=== PATIENT | male | born 1955 | race Caucasian/White ===

== ENCOUNTER 2016-09-04 10:10 | Day surgery (SDC) | payer OTHER, BC ==
[2016-09-04] MEDS ORDERED: DEXTROSE 5% 1,000 ML IV ONE (10:55)
[2016-09-04] MEDS ORDERED: LACTATED RINGERS 1,000 ML IV ONE ×2 (12:02→13:14)
[2016-09-04] MEDS ORDERED: fentaNYL 250 MCG/5 ML VIAL IVP ONE (12:02)
[2016-09-04] MEDS ORDERED: MIDAZOLAM 2 MG/2 ML VIAL IVP ONE (12:02)
== END 2016-09-04 10:11 | disposition home or self-care (01) ==
PROC: 0DBL8ZX Excision of Transverse Colon, Via Natural or Artificial Opening Endoscopic, Diagnostic (ICD-10-PCS; 2016-09-04)
PROC: 0DBN8ZX Excision of Sigmoid Colon, Via Natural or Artificial Opening Endoscopic, Diagnostic (ICD-10-PCS; principal; 2016-09-04 11:10)
DX: Z12.11 Encounter for screening for malignant neoplasm of colon (principal); D12.5 Benign neoplasm of sigmoid colon; D12.3 Benign neoplasm of transverse colon; G47.30 Sleep apnea, unspecified; I10 Essential (primary) hypertension
CPT/HCPCS: 45380; J3010; J7120

== ENCOUNTER 2017-05-15 07:23 | Outpatient (CLI) | payer BC, OTHER ==
[2017-05-15 13:43] LABS: BASOPHILS % (AUTO) 0.4 %; EOSINOPHILS # (AUTO) 0.1 10^3/uL (0.0-0.7); EOSINOPHILS % (AUTO) 2.1 %; HCT - HEMATOCRIT 41.2 % (42.0-52.0); HGB - HEMOGLOBIN 13.8 g/dL (14.0-18.0); LYMPHOCYTES # (AUTO) 1.7 10^3/uL (1.5-3.5); LYMPHOCYTES % (AUTO) 31.2 %; MEAN CORPUSCULAR HEMOGLOBIN 32.3 pg (27.0-31.0); MEAN CORPUSCULAR HGB CONC 33.4 g/dL (32.0-36.0); MEAN CORPUSCULAR VOLUME 96.8 fL (80.0-94.0); MONOCYTES # (AUTO) 0.5 10^3/uL (0.0-1.0); MONOCYTES % (AUTO) 8.8 %; NEUTROPHILS # (AUTO) 3.2 10^3/uL (1.5-6.6); NEUTROPHILS % (AUTO) 57.5 %; RED BLOOD COUNT 4.26 10^6/uL (4.70-6.10); RED CELL DISTRIBUTION WIDTH 13.1 % (12.0-15.0); UNCORRECTED WHITE BLOOD COUNT 5.5 x10^3/uL; WHITE BLOOD COUNT 5.5 x10^3/uL (4.8-10.8)
[2017-05-15 14:02] LABS: ALBUMIN/GLOBULIN RATIO 1.6 (1.0-2.2); BILIRUBIN,TOTAL 0.7 mg/dL (0.2-1.0); BUN - BLOOD UREA NITROGEN 20 mg/dL (6-20); CALCIUM 9.5 mg/dL (8.5-10.3); CARBON DIOXIDE - CO2 26 mmol/L (21-32); CHLORIDE 102 mmol/L (101-111); CHOLESTEROL 129 mg/dL; CREATININE 0.9 mg/dL (0.6-1.2); GFR - MDRD 85 (>89); GLUCOSE 94 mg/dL (70-100); HDL CHOLESTEROL 43 mg/dL; POTASSIUM 4.5 mmol/L (3.5-5.0); SODIUM 137 mmol/L (135-145); TOTAL PROTEIN 7.3 g/dL (6.7-8.2); TRIGLYCERIDES 39 mg/dL
[2017-05-15 14:12] LABS: HEMOGLOBIN A1C 0.64 g/dL
[2017-05-15 14:33] LABS: LDL CHOLESTEROL,DIRECT 80 mg/dL
== END 2017-05-15 07:24 | disposition home or self-care (01) ==
LOC: LAB.WCP 07:23
PROVIDERS: ATTEND Family Medicine
DX: I10 Essential (primary) hypertension (principal); E78.5 Hyperlipidemia, unspecified; R73.01 Impaired fasting glucose; Z12.5 Encounter for screening for malignant neoplasm of prostate
CPT/HCPCS: 36415; 80053; 80061; 83036; 84153; 85025

== ENCOUNTER 2020-12-27 11:44 | Outpatient (CLI) | payer MEDICARE, OTHER ==
[2020-12-27 18:00] LABS: BASOPHILS % (AUTO) 0.4 %; EOSINOPHILS # (AUTO) 0.1 10^3/uL (0.0-0.7); EOSINOPHILS % (AUTO) 1.9 %; HCT - HEMATOCRIT 42.7 % (42.0-52.0); HGB - HEMOGLOBIN 14.2 g/dL (14.0-18.0); LYMPHOCYTES # (AUTO) 2.1 10^3/uL (1.5-3.5); LYMPHOCYTES % (AUTO) 31.5 %; MEAN CORPUSCULAR HEMOGLOBIN 32.9 pg (27.0-31.0); MEAN CORPUSCULAR HGB CONC 33.3 g/dL (32.0-36.0); MEAN CORPUSCULAR VOLUME 98.8 fL (80.0-94.0); MEAN PLATELET VOLUME 10.2 fL (7.4-11.4); MONOCYTES # (AUTO) 0.7 10^3/uL (0.0-1.0); MONOCYTES % (AUTO) 9.9 %; NEUTROPHILS # (AUTO) 3.8 10^3/uL (1.5-6.6); PLT - PLATELET COUNT 286 10^3/uL (130-450); RED BLOOD COUNT 4.32 10^6/uL (4.70-6.10); RED CELL DISTRIBUTION WIDTH 13.2 % (12.0-15.0); WHITE BLOOD COUNT 6.8 x10^3/uL (4.8-10.8)
[2020-12-27 18:25] LABS: ALBUMIN 4.6 g/dL (3.2-5.5); ALBUMIN/GLOBULIN RATIO 1.4 (1.0-2.2); ALKALINE PHOSPHATASE 61 IU/L (42-121); ALT ALANINE AMINOTRANSFERASE 36 IU/L (10-60); AST ASPARTATE AMINOTRANSFERASE 29 IU/L (10-42); BILIRUBIN,TOTAL 0.8 mg/dL (0.2-1.0); BUN - BLOOD UREA NITROGEN 28 mg/dL (6-20); CALCIUM 9.3 mg/dL (8.5-10.3); CARBON DIOXIDE - CO2 23 mmol/L (21-32); CHLORIDE 101 mmol/L (101-111); CHOL/HDL RATIO 3.9 (<5.0); CHOLESTEROL 179 mg/dL; CREATININE 0.8 mg/dL (0.6-1.2); GFR - MDRD 97 (>89); GLUCOSE 98 mg/dL (70-100); HDL CHOLESTEROL 46 mg/dL; LDL CHOLESTEROL,CALCULATED 123 mg/dL; LDL/HDL RATIO 2.7 (<3.6); POTASSIUM 4.5 mmol/L (3.5-5.0); SODIUM 134 mmol/L (135-145); TOTAL PROTEIN 7.8 g/dL (6.7-8.2); TRIGLYCERIDES 48 mg/dL; VLDL CHOLESTEROL 10 mg/dL
[2020-12-27 18:33] LABS: THYROID STIMULATING HORMONE 1.89 uIU/mL (0.34-5.60)
[2020-12-27 20:34] LABS: ESTIMATED AVERAGE GLUCOSE 126 mg/dL (70-100)
== END 2020-12-27 23:59 | disposition home or self-care (01) ==
LOC: LAB.WCP 11:44
PROVIDERS: ATTEND Family Medicine
DX: R73.01 Impaired fasting glucose (principal); E78.5 Hyperlipidemia, unspecified; Z12.5 Encounter for screening for malignant neoplasm of prostate; I10 Essential (primary) hypertension; G40.909 Epilepsy, unspecified, not intractable, without status epilepticus
CPT/HCPCS: 36415; 80053; 80061; 83036; 84443; 85025; G0103; 83721; 84153

== ENCOUNTER 2021-02-05 09:14 | Outpatient (CLI) | payer MEDICARE, OTHER | END 2021-02-05 09:15 | disposition home or self-care (01) | LOC: DI 09:14 | PROVIDERS: ATTEND Family Medicine | DX: I35.0 Nonrheumatic aortic (valve) stenosis (principal) | CPT/HCPCS: 93306 ==

== ENCOUNTER 2021-08-06 08:00 | Outpatient (CLI) | payer MEDICARE, OTHER ==
[2021-08-06 18:12] LABS: CALCIUM 9.8 mg/dL (8.5-10.3); CREATININE 0.9 mg/dL (0.6-1.2); POTASSIUM 4.2 mmol/L (3.5-5.0)
[2021-08-07 09:21] LABS: HEPATITIS C ANTIBODY NON-REACTIVE (NON-REACTIVE)
== END 2021-08-06 23:59 | disposition home or self-care (01) ==
LOC: LAB.WCP 08:00
PROVIDERS: ATTEND Family Medicine
DX: Z01.84 Encounter for antibody response examination (principal); I10 Essential (primary) hypertension; I77.810 Thoracic aortic ectasia
CPT/HCPCS: 36415; 80048; 86803

== ENCOUNTER 2021-09-30 09:13 | Outpatient (CLI) | payer MEDICARE, OTHER | END 2021-09-30 09:14 | disposition home or self-care (01) | LOC: RT 09:13 | PROVIDERS: ATTEND Family Medicine | DX: Z77.098 Contact with and (suspected) exposure to other hazardous, chiefly nonmedicinal, chemicals (principal) | CPT/HCPCS: 94729 ==

== ENCOUNTER 2021-11-19 09:10 | Outpatient (CLI) | payer MEDICARE, OTHER ==
[2021-11-19 09:31] LABS: CREATININE 0.9 mg/dL (0.6-1.2)
[2021-11-19] MEDS ORDERED: IOVERSOL 320 100 ML VIAL IVP ONE ×2 (16:07→16:27)
--- NOTE | 2021-11-19 17:33 | CT Report ---
PROCEDURE: ANGIO CHEST W/WO INDICATIONS: AORTIC ROOT DILATION CONTRAST: 80 cc Isovue 320 IV contrast. TECHNIQUE: After the administration of intravenous contrast, 2 mm axial images were acquired from the pulmonary apices to the posterior costophrenic angles during the arterial phase. In addition, 1 mm lung kernel and 5 mm soft tissue kernel reconstructions were performed. 3-dimensional coronal oblique maximum int ensity projection (MIP) reformats, 8 mm axial MIP, and 5 mm coronal and sagittal MPR reformats were t hen performed through the thorax. For radiation dose reduction, the following was used: automated exp osure control, adjustment of mA and/or kV according to patient size. COMPARISON: Correlation is made with report only from prior noncontrast chest CT dated 02/26/2012. (N o images from that study aren't available at the time of this dictation.) FINDINGS: Image quality: Excellent. Pulmonary arteries: Pulmonary arteries are normal in size, and demonstrate no intraluminal filling d efects to suggest central pulmonary embolism. Lungs and pleura: Lungs are clear. No pleural effusions or pneumothorax. Central and peripheral ai rways are patent. Mediastinum: The aortic root is prominent, measuring 3.8 cm transversely, as on coronal image 51. Th e ascending thoracic aorta is minimally aneurysmal, measuring 4.1 cm. Heart size is normal, without pericardial effusion. No mediastinal or hilar adenopathy. Esophagus is normal in caliber, without hiatal hernia. Bones and chest wall: No suspicious bony lesions. Ribs and thoracic spine appear intact throughout. Degenerative changes are seen throughout, which are worst involving the thoracolumbar junction. No axillary or supraclavicular adenopathy. The thyroid is normal in size and there are no incidental fi ndings. Abdomen: An accessory splenule is incidentally noted along the hilum of the primary spleen. Visua lized upper abdominal solid organs appear normal in the early arterial phase of enhancement. IMPRESSION: Aortic root dilatation measuring 3.8 cm. Minimal aneurysm of the ascending thoracic aorta measuring 4.1 cm. Incidental note is made of: Focal degenerative change of the thoracolumbar junction Accessory splenule Reviewed by: Oumar Herr MD on 11/19/2021 4:32 PM AKDT Approved by: Oumar Herr MD on 11/19/2021 4:32 PM AKDT Station ID: [id number]
== END 2021-11-19 09:11 | disposition home or self-care (01) ==
LOC: LAB 09:10
PROVIDERS: ATTEND Family Medicine
DX: I77.810 Thoracic aortic ectasia (principal)
CPT/HCPCS: 36415; 71275; 82565; Q9967

== ENCOUNTER 2021-12-16 06:18 | Day surgery (SDC) | payer MEDICARE, OTHER ==
[2021-12-16] MEDS ORDERED: LACTATED RINGERS 1,000 ML IV ONE ×2 (06:38→08:30)
[2021-12-16] MEDS ORDERED: PROPOFOL 500 MG/50 ML 500 MG/50 ML VIAL ONE (07:08)
--- NOTE | 2021-12-16 07:13 | ANESTHESIA ---
Pre-Anesthesia VS, & Labs - Diagnosis hx of colon polyps - Procedure Colonoscopy Vital Signs: Temp Pulse Resp BP Pulse Ox 36.3 C L 70 20 160/101 H 96 12/16/21 06:33 12/16/21 06:33 12/16/21 06:33 12/16/21 06:33 12/16/21 06:33 Height: 5 ft 8 in Weight (kg): 99 kg Body Mass Index: 33.2 BMI Classification: Obese - NPO >8 hours - Lab Results Lab results reviewed: Yes Home Medications and Allergies Home Medications: Ambulatory Orders Glucos Sul 2Kcl/MSM/Chond/C/Mn [Glucosamine Chondroitin Cap] 1 each PO DAILY 12/11/21 hydroCHLOROthiazide [Hydrodiuril] 25 mg PO DAILY 12/11/21 Losartan [Cozaar] 100 mg PO DAILY 08/24/13 Simvastatin [Zocor] 40 mg PO QPM 08/24/13 levETIRAcetam [Keppra] 500 mg PO BID 08/24/13 Glucos Sul 2Kcl/MSM/Chond/C/Mn [Glucosamine Chondroitin Cap] 1 each PO DAILY 12/11/21 hydroCHLOROthiazide [Hydrodiuril] 25 mg PO DAILY 12/11/21 Allergies/Adverse Reactions: Allergies Allergy/AdvReac Type Severity Reaction Status Date / Time codeine Allergy Unknown Hallucinati Verified 12/11/21 13:43 ons Anes History & Medical History - Anesthetic History Anesthesia Complications: reports: No previous complications Family history of Anesthesia Complications: Denies Family history of Malignant Hyperthermia: Denies - Medical History Cardiovascular: reports: Hypertension, High cholesterol, Murmur Pulmonary: reports: None Gastrointestinal: reports: Colon polyps Urinary: reports: None Musculoskeletal: reports: Chronic back pain Endocrine/Autoimmune: reports: None Skin: reports: None - Surgical History General: reports: Appendectomy, Colonoscopy Eyes Ears Nose Throat (EENT): reports: Other Exam General: Alert, Oriented x3, Cooperative, No acute distress Dental: WNL Mouth Openin Fingerbreadth Neck Mobility: Normal Mallampati classification: II Respiratory: Lungs clear, Normal breath sounds, No respiratory distress, No accessory muscle use Plan Anesthesia Type: General, Total IV Consent for Procedure(s) Verified and Reviewed: Yes Code Status: Attempt Resuscitation ASA classification: 2-Mild systemic disease Is this case an emergency?: No
[2021-12-16 08:45] VITALS: BP 148/91
--- NOTE | 2021-12-16 09:41 | ANESTHESIA POST OP EVALUATION ---
Anesthesia Post Eval - Post Anesthesia Eval Vitals: Last Vital Signs Temp 36.4 C L 12/16/21 08:44 Pulse 64 12/16/21 08:44 Resp 16 12/16/21 08:44 BP 148/91 H 12/16/21 08:44 Pulse Ox 100 12/16/21 08:44 CV Function Including HR & BP: Stable Pain Control: Satisfactory Nausea & Vomiting: Negative Mental Status: Baseline Respiratory Status: Airway Patent Hydration Status: Satisfactory Anesthesia Complications: None
== END 2021-12-16 06:19 | disposition home or self-care (01) ==
LOC: SDS 06:18
PROVIDERS: ATTEND Surgery
DX: Z12.11 Encounter for screening for malignant neoplasm of colon (principal); K57.30 Diverticulosis of large intestine without perforation or abscess without bleeding; K64.8 Other hemorrhoids; E66.9 Obesity, unspecified; Z68.33 Body mass index [BMI] 33.0-33.9, adult; I35.0 Nonrheumatic aortic (valve) stenosis; Z86.010 Personal history of colon polyps
CPT/HCPCS: G0105; J7120

== ENCOUNTER 2022-04-08 08:00 | Outpatient (CLI) | payer MEDICARE, OTHER ==
[2022-04-08 20:55] LABS: BASOPHILS % (AUTO) 0.2 %; EOSINOPHILS # (AUTO) 0.2 10^3/uL (0.0-0.7); HCT - HEMATOCRIT 39.9 % (42.0-52.0); HGB - HEMOGLOBIN 13.5 g/dL (14.0-18.0); LYMPHOCYTES # (AUTO) 2.3 10^3/uL (1.5-3.5); LYMPHOCYTES % (AUTO) 15.9 %; MEAN CORPUSCULAR HEMOGLOBIN 32.8 pg (27.0-31.0); MEAN CORPUSCULAR HGB CONC 33.8 g/dL (32.0-36.0); MEAN CORPUSCULAR VOLUME 97.1 fL (80.0-94.0); MEAN PLATELET VOLUME 10.3 fL (7.4-11.4); MONOCYTES # (AUTO) 1.4 10^3/uL (0.0-1.0); MONOCYTES % (AUTO) 9.4 %; NEUTROPHILS # (AUTO) 10.8 10^3/uL (1.5-6.6); PLT - PLATELET COUNT 259 10^3/uL (130-450); RED BLOOD COUNT 4.11 10^6/uL (4.70-6.10); RED CELL DISTRIBUTION WIDTH 13.5 % (12.0-15.0); WHITE BLOOD COUNT 14.8 x10^3/uL (4.8-10.8)
[2022-04-08 21:05] LABS: ALBUMIN 4.3 g/dL (3.2-5.5); ALBUMIN/GLOBULIN RATIO 1.1 (1.0-2.2); BILIRUBIN,TOTAL 0.7 mg/dL (0.2-1.0); CALCIUM 9.4 mg/dL (8.5-10.3); CREATININE 0.9 mg/dL (0.6-1.2); POTASSIUM 4.3 mmol/L (3.5-5.0); TOTAL PROTEIN 8.2 g/dL (6.7-8.2); URIC ACID 4.5 mg/dL (2.6-7.2)
== END 2022-04-08 23:59 | disposition home or self-care (01) ==
LOC: LAB.N 08:00
PROVIDERS: ATTEND Nurse Practitioner
DX: M25.562 Pain in left knee (principal)
CPT/HCPCS: 36415; 80053; 84550; 85025; 85379

== ENCOUNTER 2022-05-26 17:29 | Outpatient (CLI) | payer MEDICARE, OTHER ==
--- NOTE | 2022-05-26 19:53 | XRAY Report ---
PROCEDURE: Knee 3 View RT INDICATIONS: SPRAIN OF UNSPECIFIED COLLATERAL LIGAMENT OF RIGHT TECHNIQUE: 3 views of the right knee(s) were acquired. COMPARISON: None. FINDINGS: Bones: No fractures or dislocations. Mild to moderate tricompartmental osteoarthritis is seen with joint space narrowing, subchondral sclerosis and marginal osteophyte formation. No suspicious bony le sions. Soft tissues: Moderate suprapatellar joint effusion is seen. No suspicious soft tissue calcification s. IMPRESSION: No acute right knee fracture or dislocation. Mild to moderate tricompartmental osteoarth ritis. Moderate joint effusion. Reviewed by: Manpreet Conti MD on 05/26/2022 7:52 PM PDT Approved by: Manpreet Conti MD on 05/26/2022 7:52 PM PDT Station ID: [id number]
== END 2022-05-26 17:30 | disposition home or self-care (01) ==
LOC: DI 17:29
PROVIDERS: ATTEND Physician Assistant
DX: S83.401A Sprain of unspecified collateral ligament of right knee, initial encounter (principal); M17.11 Unilateral primary osteoarthritis, right knee; M25.461 Effusion, right knee

== ENCOUNTER 2022-06-12 08:00 | Outpatient (CLI) | payer MEDICARE, OTHER | END 2022-06-12 23:59 | disposition home or self-care (01) | LOC: LAB.N 08:00 | PROVIDERS: ATTEND Family Medicine | DX: R30.0 Dysuria (principal) | CPT/HCPCS: 87086 ==

== ENCOUNTER 2022-06-14 07:07 | Outpatient (CLI) | payer MEDICARE, OTHER ==
--- NOTE | 2022-06-16 10:16 | MRI Report ---
PROCEDURE: KNEE WO - RT INDICATIONS: SPRAIN OF RIGHT KNEE TECHNIQUE: Noncontrast sagittal PD fast spin echo and T2 fast spin echo with fat saturation, sagittal 3-D gradie nt sequence with fat saturation; coronal T1 spin echo and PD fast spin echo with fat saturation, and axial PD fast spin echo with fat saturation through the knee. COMPARISON: Right knee radiograph dated 05/26/2022. FINDINGS: Image quality: Excellent. Menisci: Complex tear involving anterior horn and body of lateral meniscus is seen extending to both superior and inferior articulating surfaces. Medial meniscus is intact.. The meniscal root ligaments appear intact. Cruciate ligaments: Myxoid degenerative changes and low-grade intrasubstance partial thickness tear i nvolving anterior cruciate ligament is noted. No ACL rupture. PCL is intact. Medial structures: The medial collateral ligament appears intact. The posterior oblique ligament, s emimembranosus tendon insertions, and oblique popliteal ligament, and meniscocapsular junction appear intact. Visualized portions of the pes anserinus tendons appear normal. No abnormal bursal fluid. Lateral structures: Low to moderate grade lateral collateral ligament partial thickness tear is seen. The long and short heads of the biceps femoris tendon appear intact. Low to moderate grade partial t hickness involving proximal popliteus tendon extending to muscular tendinous junction is seen. Ilioti bial band appears normal. Anterior structures: The quadriceps and patellar tendons appear intact. Patellar alignment is marcus l. No femoral trochlear dysplasia or ventral trochlear prominence. No edema in the infrapatellar fa t pad. Bones and cartilage: No bone marrow contusions or fractures. Mild to moderate grade tricompartmental osteoarthritis and chondromalacia is seen most notably in lateral femoral tibial compartment and lat eral portion the patellofemoral compartment. Joint space: There is moderate knee joint fluid. There is a small Connor's cyst. Normal appearing syn ovial plicae are incidentally noted. IMPRESSION: 1. Complex tear involving anterior horn and body of lateral meniscus extending to both superior and i nferior articular surfaces. No focal medial meniscal tear. 2. Degenerative changes and low-grade intrasubstance partial thickness tear involving ACL. No ACL rup ture. PCL is intact. 3. Low to moderate grade LCL sprain/partial thickness tear. Low to moderate grade partial thickness t ear also seen involving proximal popliteus tendon extending to muscular tendinous junction. 4. Mild to moderate tricompartmental osteoarthritis and chondromalacia most notably in lateral femora l tibial compartment and lateral portion of patellofemoral compartment. No fracture or dislocation. M oderate joint effusion and a small Connor's cyst. Reviewed by: Manpreet Conti MD on 06/16/2022 10:14 AM PST Approved by: Manpreet Conti MD on 06/16/2022 10:14 AM PST Station ID: [id number]
== END 2022-06-14 07:08 | disposition home or self-care (01) ==
LOC: DI 07:07
PROVIDERS: ATTEND Physician Assistant
DX: S83.271A Complex tear of lateral meniscus, current injury, right knee, initial encounter (principal); S83.511A Sprain of anterior cruciate ligament of right knee, initial encounter; S83.421A Sprain of lateral collateral ligament of right knee, initial encounter; S86.821A Laceration of other muscle(s) and tendon(s) at lower leg level, right leg, initial encounter; M17.11 Unilateral primary osteoarthritis, right knee; M22.41 Chondromalacia patellae, right knee; M25.461 Effusion, right knee; M71.21 Synovial cyst of popliteal space [Baker], right knee

== ENCOUNTER 2022-07-08 16:24 | Outpatient (CLI) | payer MEDICARE, OTHER ==
--- NOTE | 2022-07-08 12:54 | XRAY Report ---
PROCEDURE: Knee 3 View RT INDICATIONS: RIGHT KNEE PAIN TECHNIQUE: 3 views of the right knee(s) were acquired. COMPARISON: 3 views of the right knee dated 05/26/2022. FINDINGS: Bones: There is moderate femorotibial compartment narrowing and small intercondylar osteophytes. Fin dings are similar to the study dated 05/26/2022 Soft tissues: The joint effusion visualized on the comparison MRI dated 06/14/2022 is not visualized on the current study. No suspicious soft tissue calcifications. IMPRESSION: Stable osteoarthritis. Reviewed by: Marisa Huang MD on 07/08/2022 12:52 PM PST Approved by: Marisa Huang MD on 07/08/2022 12:52 PM PST Station ID: [id number]
== END 2022-07-08 16:25 | disposition home or self-care (01) ==
LOC: DI.WOS 16:24
PROVIDERS: ATTEND Physician Assistant Surgical
DX: M17.11 Unilateral primary osteoarthritis, right knee (principal)

== ENCOUNTER 2022-11-20 07:25 | Outpatient (CLI) | payer MEDICARE, OTHER ==
[2022-11-20 11:33] LABS: BASOPHILS % (AUTO) 0.4 %; EOSINOPHILS # (AUTO) 0.2 10^3/uL (0.0-0.7); EOSINOPHILS % (AUTO) 2.6 %; HCT - HEMATOCRIT 40.4 % (42.0-52.0); HGB - HEMOGLOBIN 13.5 g/dL (14.0-18.0); LYMPHOCYTES # (AUTO) 2.2 10^3/uL (1.5-3.5); LYMPHOCYTES % (AUTO) 28.7 %; MEAN CORPUSCULAR HGB CONC 33.4 g/dL (32.0-36.0); MEAN CORPUSCULAR VOLUME 95.7 fL (80.0-94.0); MEAN PLATELET VOLUME 10.5 fL (7.4-11.4); MONOCYTES # (AUTO) 0.7 10^3/uL (0.0-1.0); MONOCYTES % (AUTO) 9.1 %; NEUTROPHILS # (AUTO) 4.5 10^3/uL (1.5-6.6); NEUTROPHILS % (AUTO) 58.8 %; PLT - PLATELET COUNT 268 10^3/uL (130-450); RED BLOOD COUNT 4.22 10^6/uL (4.70-6.10); RED CELL DISTRIBUTION WIDTH 13.3 % (12.0-15.0); WHITE BLOOD COUNT 7.6 x10^3/uL (4.8-10.8)
[2022-11-20 12:08] LABS: ALBUMIN 4.4 g/dL (3.2-5.5); ALBUMIN/GLOBULIN RATIO 1.6 (1.0-2.2); ALKALINE PHOSPHATASE 61 IU/L (42-121); ALT ALANINE AMINOTRANSFERASE 34 IU/L (10-60); AST ASPARTATE AMINOTRANSFERASE 31 IU/L (10-42); BILIRUBIN,TOTAL 0.6 mg/dL (0.2-1.0); BUN - BLOOD UREA NITROGEN 24 mg/dL (6-20); CALCIUM 9.1 mg/dL (8.5-10.3); CARBON DIOXIDE - CO2 26 mmol/L (21-32); CHLORIDE 107 mmol/L (101-111); CHOL/HDL RATIO 3.6 (<5.0); CHOLESTEROL 180 mg/dL; CREATININE 0.9 mg/dL (0.6-1.2); GFR - MDRD 84 (>89); GLUCOSE 112 mg/dL (70-100); HDL CHOLESTEROL 50 mg/dL; LDL CHOLESTEROL,CALCULATED 119 mg/dL; LDL/HDL RATIO 2.4 (<3.6); POTASSIUM 4.2 mmol/L (3.5-5.0); SODIUM 136 mmol/L (135-145); TOTAL PROTEIN 7.2 g/dL (6.7-8.2); TRIGLYCERIDES 56 mg/dL; VLDL CHOLESTEROL 11 mg/dL
[2022-11-20 12:12] LABS: ESTIMATED AVERAGE GLUCOSE 131 mg/dL (70-100); HEMOGLOBIN A1c% 6.2 % (4.27-6.07)
[2022-11-20 12:19] LABS: THYROID STIMULATING HORMONE 2.82 uIU/mL (0.34-5.60)
== END 2022-11-20 07:26 | disposition home or self-care (01) ==
LOC: LAB.N 07:25
PROVIDERS: ATTEND Nurse Practitioner Family
DX: I10 Essential (primary) hypertension (principal); E78.5 Hyperlipidemia, unspecified; E66.9 Obesity, unspecified
CPT/HCPCS: 36415; 80053; 80061; 83036; 83721; 84443; 85025

== ENCOUNTER 2023-05-22 08:34 | Outpatient (CLI) | payer MEDICARE, OTHER ==
[2023-05-22 12:04] LABS: ABSOLUTE RETICS # AUTO 0.063 10^6/uL (0.020-0.110); RED BLOOD COUNT 4.28 10^6/uL (4.70-6.10); RETICULOCYTE COUNT % (AUTO) 1.47 % (0.5-2.3)
== END 2023-05-22 08:35 | disposition home or self-care (01) ==
LOC: LAB.N 08:34
PROVIDERS: ATTEND Nurse Practitioner Family
DX: D53.9 Nutritional anemia, unspecified (principal); Z12.5 Encounter for screening for malignant neoplasm of prostate; N40.0 Benign prostatic hyperplasia without lower urinary tract symptoms
CPT/HCPCS: 36415; 82607; 82746; 85045; G0103; 84153